=== PATIENT | male | born 1975 | race Caucasian/White ===

== ENCOUNTER 2022-12-23 09:00 | Outpatient (CLI) | payer OTHER, SELFPAY ==
[2022-12-23 13:04] LABS: Cholesterol* 211 mg/dL (90-199)
[2022-12-23 13:05] LABS: Glucose* 92 mg/dL (60-115); HDL Cholesterol* 60 mg/dL (>=40); LDL Cholesterol Calculated 119 mg/dL (<100); Triglycerides* 161 mg/dL (40-149)
== END 2022-12-23 09:01 | disposition home or self-care (01) ==
PROVIDERS: PCP Physician Assistant Medical; Visit Provider Emergency Medicine
DX: Z13.1 Encounter for screening for diabetes mellitus (principal); Z13.6 Encounter for screening for cardiovascular disorders
CPT/HCPCS: 80061; 82947

== ENCOUNTER 2023-01-22 11:31 | Outpatient (CLI) | payer OTHER, SELFPAY | END 2023-01-22 11:32 | disposition home or self-care (01) | PROVIDERS: PCP Physician Assistant Medical; Visit Provider Internal Medicine | DX: Z12.11 Encounter for screening for malignant neoplasm of colon (principal) | CPT/HCPCS: 45378; J2250; J3010 ==